=== PATIENT | female | born 2000 | race African-American/Black ===

== ENCOUNTER 2022-04-23 13:51 | Emergency (ER) | payer OTHER ==
[2022-04-23 14:29] LABS: Bilirubin Neg (Negative); Blood, Urine Negative (Negative); Clarity Clear (Clear); Glucose, Urine (Dipstick) Normal (Negative); Ketone, Urine Negative (Negative); Leukocyte 100 (Negative); Nitrite Negative (Negative); Protein, Urine (Dipstick) 15 mg/dl (Neg-Trace); Specific Gravity, Urine 1.015 (1.005-1.030); Urobilinogen Normal mg/dL (Less than 2)
[2022-04-23 14:35] LABS: Bacteria/HPF Rare-Few HPF (None Seen); Mucous/LPF Rare LPF (<2+); RBC/HPF 0-3 HPF (0-3); WBC/HPF 0-3 HPF (0-3)
[2022-04-24 11:25] LABS: Chlam.trachomatis by PCR,Urine DETECTED (NotDetected)
== END 2022-04-23 16:37 | disposition home or self-care (01) ==
LOC: CSHERS 13:51
DX: N76.0 Acute vaginitis (principal); Z86.73 Personal history of transient ischemic attack (TIA), and cerebral infarction without residual deficits
CPT/HCPCS: 81003; 81015; 87077; 87086; 87480; 87491; 87510; 87591; 87660; 99283

== ENCOUNTER 2022-05-21 22:36 | Emergency (ER) | payer OTHER ==
[2022-05-22] MEDS ORDERED: Ketorolac Tromethamine 30 MG/ML VIAL ONE (00:07)
[2022-05-22] MEDS ORDERED: Ibuprofen 200 MG TAB ONE (00:11)
== END 2022-05-22 01:10 | disposition home or self-care (01) ==
LOC: CSHERS 22:36
DX: S93.402A Sprain of unspecified ligament of left ankle, initial encounter (principal); F17.290 Nicotine dependence, other tobacco product, uncomplicated; X50.1XXA Overexertion from prolonged static or awkward postures, initial encounter
CPT/HCPCS: J1885

== ENCOUNTER 2022-07-06 21:50 | Emergency (ER) | payer OTHER ==
[2022-07-07 00:10] LABS: SARS-CoV-2 NAA Rapid Test DETECTED (NotDetected)
== END 2022-07-07 00:22 | disposition home or self-care (01) ==
LOC: CSHERS 21:50
DX: U07.1 COVID-19 (principal); F17.290 Nicotine dependence, other tobacco product, uncomplicated; Z86.73 Personal history of transient ischemic attack (TIA), and cerebral infarction without residual deficits
CPT/HCPCS: 71045